=== PATIENT | male | born 1935 | race Caucasian/White ===

== ENCOUNTER 2024-10-08 15:30 | Inpatient (IN) | payer MEDICARE, OTHER ==
[~2024-10-08] VITALS: Ht 193 cm; Wt 85.3 kg
[2024-10-08] MEDS: PIPERACILLIN/TAZO 3.375G/100ML 100 ML IV SCH
[2024-10-08] MEDS: SODIUM CHLORIDE 0.9% 1,000 ML IV ONE (16:19)
[2024-10-08 16:30] LABS: HEMATOCRIT 32.7 % (42.0-52.0); HEMOGLOBIN 10.8 g/dL (14.0-18.0); MEAN CORPUSCULAR HEMOGLOBIN 32.7 pg (28.0-32.0); PLATELET 183 x1000/uL (130-400); RED CELL DISTRIBUTION WIDTH 12.6 % (11.6-14.6); WHITE BLOOD COUNT 24.8 x1000/uL (4.5-11.0)
[2024-10-08 16:40] LABS: CARBON DIOXIDE 21 mEq/L (21-32); CHLORIDE 110 mEq/L (98-107); POTASSIUM 4.2 mEq/L (3.5-5.1); SODIUM 139 mEq/L (136-145)
[2024-10-08 16:41] LABS: CALCIUM 8.8 mg/dL (8.7-10.4)
[2024-10-08 16:45] LABS: CREATININE 1.5 mg/dL (0.6-1.3); GLUCOSE 123 mg/dL (70-105)
[2024-10-08 16:46] LABS: UREA NITROGEN BLOOD 33 mg/dL (9-23)
[2024-10-08 16:59] LABS: TROPONIN I HIGH SENSITIVITY 17 ng/L (3.0-53)
[2024-10-08] MEDS ORDERED: VANCOMYCIN 1GM/200ML PMX (BAXTER) IV SCH (17:00)
[2024-10-08] MEDS: SODIUM CHLORIDE 0.9% 1,000 ML IV SCH ×2 (18:00)
[2024-10-08] MEDS: SODIUM CHLORIDE 0.9% (SEPSIS BOLUS) IV ONE (18:37)
[2024-10-08] MEDS: VANCOMYCIN 1.5GM PMX (XELLIA) 300 ML IV SCH (19:07)
[2024-10-08 19:33] LABS: CLARITY URINE CLEAR (CLEAR); COLOR URINE DARK YELLOW (YELLOW); GLUCOSE URINE NEGATIVE (NEGATIVE); KETONES URINE NEGATIVE (NEGATIVE); LEUKOCYTE ESTERASE URINE 2+ (NEGATIVE); NITRITE URINE POSITIVE (NEGATIVE); OCCULT BLOOD URINE NEGATIVE (NEGATIVE); PH URINE 5.5 (4.5-8.0); PROTEIN URINE 1+ (NEGATIVE); SPECIFIC GRAVITY URINE 1.017 (1.005-1.030)
[2024-10-08 19:48] LABS: BACTERIA URINE 4+; RBC URINE 0-2 /hpf (0-2); SQUAMOUS EPITHELIAL CELL URINE FEW /lpf (RARE/1+); WBC URINE 25-50 /hpf (0-2)
[2024-10-08] MEDS ORDERED: PIPERACILLIN/TAZO 3.375G/100ML 100 ML IV SCH (22:00)
[2024-10-08] MEDS ORDERED: ACETAMINOPHEN 325MG TABLET PO PRN ×2 (23:00)
[2024-10-08] MEDS ORDERED: IPRATROPIUM/ALBUTEROL 0.5-3(2.5)MG/3ML NEB HHN PRN (23:00)
[2024-10-08] MEDS ORDERED: ONDANSETRON HCL 4MG/2ML INJ IV PRN (23:00)
[2024-10-08] MEDS ORDERED: CLONIDINE 0.1MG TABLET PO PRN (23:00)
[2024-10-08] MEDS ORDERED: DOCUSATE SODIUM 100MG CAPSULE PO PRN (23:00)
[2024-10-08 23:55] VITALS: BP 111/59; PULSE 75; RESP 16; TEMP 36.83628; TEMP 36.8628; O2SAT 100
[2024-10-09 04:35] VITALS: BP 97/28; PULSE 62; RESP 16; TEMP 36.33624; O2SAT 100
[2024-10-09] MEDS ORDERED: ATOR40TA70 PO (06:46)
[2024-10-09] MEDS ORDERED: APIX5TAB PO (06:46)
[2024-10-09] MEDS ORDERED: LOSA25TA26 PO (06:47)
[2024-10-09] MEDS ORDERED: FINA5TAB11 PO (06:47)
[2024-10-09 07:26] LABS: HEMATOCRIT. 29.9 % (42.0-52.0); HEMOGLOBIN. 9.8 g/dL (14.0-18.0); MEAN CORPUSCULAR HEMOGLOBIN 32.6 pg (28.0-32.0); MEAN CORPUSCULAR HGB CONC 32.7 g/dL (31.0-37.0); MEAN CORPUSCULAR VOLUME 99.7 fL (80.0-94.0); MEAN PLATELET VOLUME 8.2 fl (7.4-10.4); PLATELET 161 x1000/uL (130-400); RED CELL DISTRIBUTION WIDTH 12.7 % (11.6-14.6); WHITE BLOOD COUNT 18.6 x1000/uL (4.5-11.0)
[2024-10-09 07:29] LABS: CHLORIDE 116 mEq/L (98-107); POTASSIUM 3.9 mEq/L (3.5-5.1); SODIUM 142 mEq/L (136-145)
[2024-10-09 07:30] LABS: CALCIUM 8.1 mg/dL (8.7-10.4); CARBON DIOXIDE 19 mEq/L (21-32)
[2024-10-09 07:35] LABS: CREATININE 1.3 mg/dL (0.6-1.3); GLUCOSE 131 mg/dL (70-105); UREA NITROGEN BLOOD 31 mg/dL (9-23)
[2024-10-09 07:37] LABS: ALANINE AMINOTRANSFERASE 14 IU/L (10-49); ASPARTATE AMINOTRANSFERASE 16 IU/L (<34); PROTEIN TOTAL 5.2 g/dL (6.0-8.3)
[2024-10-09 07:38] LABS: BILIRUBIN TOTAL 1.1 mg/dL (0.1-1.0)
[2024-10-09 07:52] LABS: DIFFERENTIAL COMMENT 1
[2024-10-09 08:00] VITALS: BP 116/53; PULSE 65; RESP 13; TEMP 37.00296; O2SAT 98
[2024-10-09] MEDS: PANTOPRAZOLE SODIUM 40 MG/VIAL IV SCH (08:40)
[2024-10-09 12:00] VITALS: BP 103/36; PULSE 61; RESP 20; TEMP 36.50292; O2SAT 97
[2024-10-09 12:42] LABS: INR 1.1; PROTHROMBIN TIME 12.6 sec (9.6-11.0)
[2024-10-09] MEDS: SODIUM CHLORIDE 0.45% 1,000 ML IV SCH (12:49)
[2024-10-09 12:54] LABS: FERRITIN 181 ng/mL (22-322); FOLIC ACID (FOLATE) SERUM 3.73 ng/mL (>5.38); TRIOIODOTHYRONINE TOTAL 0.43 ng/ml (0.60-1.81); VITAMIN B12 SERUM 866 pg/mL (211-911)
[2024-10-09 12:59] LABS: CREATINE KINASE MB FRACTION 2.8 ng/mL (0.5-3.6)
[2024-10-09 13:00] LABS: TROPONIN I HIGH SENSITIVITY 16 ng/L (3.0-53)
[2024-10-09 13:01] LABS: IRON 13 ug/dL (65-175); TRIGLYCERIDE 62 mg/dL (0-150)
[2024-10-09 13:02] LABS: LDL CHOLESTEROL 34 mg/dL (5-100)
[2024-10-09 13:03] LABS: ALANINE AMINOTRANSFERASE 15 IU/L (10-49); ALBUMIN 3.2 g/dL (3.2-4.8); ASPARTATE AMINOTRANSFERASE 19 IU/L (<34); BILIRUBIN DIRECT 0.4 mg/dL (<=3.0); CHOLESTEROL 85 mg/dL (<200); CREATINE KINASE 255 IU/L (46-171); HDL CHOLESTEROL 30 mg/dL (>55); PHOSPHORUS 2.1 mg/dL (2.5-4.9)
[2024-10-09 13:04] LABS: PROTEIN TOTAL 5.7 g/dL (6.0-8.3); T4 FREE 1.15 ng/dL (0.89-1.76); THYROID STIMULATING HORMONE 0.44 uIU/mL (0.55-4.78); TOTAL IRON BINDING CAPACITY 515 ug/dl (250-425)
[2024-10-09] MEDS: VANCOMYCIN 1GM/200ML PMX (BAXTER) IV SCH (13:47)
[2024-10-09 14:32] LABS: *AMPHETAMINES SCREEN URINE NEGATIVE (NEGATIVE); *BARBITURATES SCREEN URINE NEGATIVE (NEGATIVE); *BENZODIAZEPINES SCREEN URINE NEGATIVE (NEGATIVE); *COCAINE SCREEN URINE NEGATIVE (NEGATIVE); METHADONE URINE SCREEN NEGATIVE (NEGATIVE)
[2024-10-09 14:33] LABS: CANNABINOID URINE SCREEN NEGATIVE (NEGATIVE); ECSTASY MDMA SCREEN URINE NEGATIVE (NEGATIVE); OPIATES URINE SCREEN NEGATIVE (NEGATIVE); PHENCYCLIDINE URINE SCREEN NEGATIVE (NEGATIVE)
[2024-10-09 16:00] VITALS: BP 118/81; PULSE 62; RESP 18; TEMP 36.6696; O2SAT 100
[2024-10-09] MEDS: MIDODRINE HCL 5MG TABLET PO SCH (16:34)
[2024-10-09 16:43] LABS: PLATELET ESTIMATE NORMAL
[2024-10-09 20:00] VITALS: BP 124/61; PULSE 63; RESP 17; TEMP 36.50292; O2SAT 98
[2024-10-10] VITALS: BP 141/65; PULSE 57; RESP 18; TEMP 37.16964; O2SAT 98
[2024-10-10 04:50] VITALS: BP 121/45; PULSE 50; RESP 18; TEMP 36.6696; O2SAT 96
[2024-10-10] MEDS: MIDODRINE HCL 5MG TABLET PO SCH (06:19)
[2024-10-10 07:02] LABS: CHLORIDE 113 mEq/L (98-107); POTASSIUM 3.9 mEq/L (3.5-5.1); SODIUM 140 mEq/L (136-145)
[2024-10-10 07:03] LABS: CALCIUM 8.6 mg/dL (8.7-10.4); CARBON DIOXIDE 20 mEq/L (21-32)
[2024-10-10 07:06] LABS: TROPONIN I HIGH SENSITIVITY 13 ng/L (3.0-53)
[2024-10-10 07:08] LABS: CREATININE 1.1 mg/dL (0.6-1.3); GLUCOSE 108 mg/dL (70-105); UREA NITROGEN BLOOD 30 mg/dL (9-23)
[2024-10-10 07:11] LABS: PHOSPHORUS 1.8 mg/dL (2.5-4.9)
[2024-10-10 07:17] LABS: EOSINOPHILS % 0.1 % (0.0-5.0); HEMATOCRIT. 30.6 % (42.0-52.0); HEMOGLOBIN. 10.2 g/dL (14.0-18.0); LYMPHOCYTES % 10.2 % (20.0-50.0); MEAN CORPUSCULAR HEMOGLOBIN 32.8 pg (28.0-32.0); MEAN CORPUSCULAR HGB CONC 33.2 g/dL (31.0-37.0); MEAN CORPUSCULAR VOLUME 98.7 fL (80.0-94.0); MEAN PLATELET VOLUME 8.6 fl (7.4-10.4); MONOCYTES % 6.7 % (2.0-8.0); PLATELET 164 x1000/uL (130-400); RED CELL DISTRIBUTION WIDTH 12.9 % (11.6-14.6)
[2024-10-10 08:00] VITALS: BP 109/54; PULSE 58; RESP 20; TEMP 36.44736
[2024-10-10 12:00] VITALS: BP 113/57; PULSE 54; TEMP 36.28068; O2SAT 98
[2024-10-10] MEDS ORDERED: MAGNESIUM 2 G PREMIX 50 ML IV ONE (12:30)
[2024-10-10] MEDS: MAGNESIUM OXIDE 400MG TABLET PO SCH (13:21)
[2024-10-10] MEDS: MAGNESIUM 2 G PREMIX 50 ML IV NR (13:21)
[2024-10-10] MEDS: VANCOMYCIN 1.25GM PMX (XELLIA) 250 ML IV SCH (15:34)
[2024-10-10 16:00] VITALS: BP 135/65; PULSE 51; TEMP 36.3918; O2SAT 96
[2024-10-10] MEDS: POTASSIUM PHOSPHATE 30 MMOL in SODIUM CHLORIDE 0.9% 490 ML IV NR (17:32)
[2024-10-10 20:00] VITALS: BP 117/51; PULSE 56; RESP 16; TEMP 37.28076; O2SAT 97
[2024-10-10] MEDS: LACTOBACILLUS GG CAPSULE PO SCH (21:30)
[2024-10-10] MEDS: SULFAMETHOXAZOLE/TRIMETHOPRIM 800/160MG TABLET PO SCH (21:53)
[2024-10-11 08:00] VITALS: BP 142/76; PULSE 58; RESP 16; TEMP 36.78072; O2SAT 100
[2024-10-11 08:19] LABS: BASOPHILS % 0.2 % (0.0-2.0); DIFFERENTIAL COMMENT 0; EOSINOPHILS % 0.5 % (0.0-5.0); HEMATOCRIT. 35.4 % (42.0-52.0); HEMOGLOBIN. 11.5 g/dL (14.0-18.0); LYMPHOCYTES % 11.4 % (20.0-50.0); MEAN CORPUSCULAR HEMOGLOBIN 32.7 pg (28.0-32.0); MEAN CORPUSCULAR HGB CONC 32.4 g/dL (31.0-37.0); MEAN CORPUSCULAR VOLUME 100.8 fL (80.0-94.0); MEAN PLATELET VOLUME 8.4 fl (7.4-10.4); MONOCYTES % 8.3 % (2.0-8.0); NEUTROPHILS % 79.6 % (40.0-76.0); PLATELET 195 x1000/uL (130-400); RED BLOOD CELL COUNT 3.51 mill/uL (4.7-6.1); RED CELL DISTRIBUTION WIDTH 12.7 % (11.6-14.6); WHITE BLOOD COUNT 14.7 x1000/uL (4.5-11.0)
[2024-10-11 08:23] LABS: POTASSIUM 4.1 mEq/L (3.5-5.1)
[2024-10-11 08:24] LABS: CALCIUM 8.7 mg/dL (8.7-10.4)
[2024-10-11 08:29] LABS: CREATININE 1.3 mg/dL (0.6-1.3)
[2024-10-11] MEDS: AMLODIPINE 2.5MG TABLET PO SCH ×2 (09:11→20:08)
[2024-10-11] MEDS: FOLIC ACID 1MG TABLET PO SCH (09:12)
[2024-10-11 12:00] VITALS: BP 129/64; PULSE 50; RESP 21; TEMP 37.05852; O2SAT 99
[2024-10-11] MEDS: APIXABAN 5 MG TABLET PO SCH (13:34)
[2024-10-11 16:38] VITALS: BP 100/60; PULSE 55; RESP 20; TEMP 36.114; O2SAT 97
[2024-10-11 18:00] VITALS: BP 155/80; PULSE 55; RESP 16; TEMP 36.5292
[2024-10-11 20:00] VITALS: BP 129/64; PULSE 81; RESP 20; TEMP 36.72516; O2SAT 100
[2024-10-12 04:00] VITALS: BP 130/45; PULSE 60; RESP 20; TEMP 36.3918; O2SAT 99
[2024-10-12 06:41] LABS: POTASSIUM 4.2 mEq/L (3.5-5.1)
[2024-10-12 06:42] LABS: BASOPHILS % 0.2 % (0.0-2.0); EOSINOPHILS % 0.2 % (0.0-5.0); HEMATOCRIT. 33.5 % (42.0-52.0); HEMOGLOBIN. 11.2 g/dL (14.0-18.0); MEAN CORPUSCULAR HEMOGLOBIN 33.4 pg (28.0-32.0); MEAN CORPUSCULAR HGB CONC 33.5 g/dL (31.0-37.0); MEAN CORPUSCULAR VOLUME 99.5 fL (80.0-94.0); MEAN PLATELET VOLUME 8.3 fl (7.4-10.4); MONOCYTES % 8.7 % (2.0-8.0); NEUTROPHILS % 80.9 % (40.0-76.0); PLATELET 236 x1000/uL (130-400); RED BLOOD CELL COUNT 3.36 mill/uL (4.7-6.1); RED CELL DISTRIBUTION WIDTH 12.5 % (11.6-14.6); WHITE BLOOD COUNT 17.5 x1000/uL (4.5-11.0)
[2024-10-12 06:43] LABS: CALCIUM 8.8 mg/dL (8.7-10.4)
[2024-10-12 06:47] LABS: CREATININE 1.2 mg/dL (0.6-1.3)
[2024-10-12 08:00] VITALS: BP 103/61; PULSE 62; RESP 20; TEMP 36.89184; O2SAT 96
[2024-10-12 12:00] VITALS: BP 130/59; PULSE 60; RESP 20; TEMP 36.50292; O2SAT 96
[2024-10-12] MEDS ORDERED: SULF1TAB48 MT (15:20)
[2024-10-12 16:00] VITALS: BP 127/60; PULSE 63; RESP 20; TEMP 36.61404; O2SAT 97
[2024-10-12 16:25] VITALS: BP 130/59; PULSE 60; TEMP 97.7; O2SAT 96
== END 2024-10-12 17:22 | disposition home or self-care (01) | DRG 872 ==
LOC: ER 15:30 → 5WST 21:23 → EDBEDREQTM 21:36 → EDBEDREQ 21:36 → 5WST 10-11 10:48 → 6EST 10-11 16:44
PROVIDERS: ADMIT Family Medicine Adult Medicine; ATTEND Family Medicine Adult Medicine
DX: A41.9 Sepsis, unspecified organism (principal); N39.0 Urinary tract infection, site not specified; N17.9 Acute kidney failure, unspecified; D64.9 Anemia, unspecified; E89.0 Postprocedural hypothyroidism; I10 Essential (primary) hypertension; R00.1 Bradycardia, unspecified; Z20.822 Contact with and (suspected) exposure to COVID-19; I48.0 Paroxysmal atrial fibrillation; E83.42 Hypomagnesemia; E78.00 Pure hypercholesterolemia, unspecified; E07.81 Sick-euthyroid syndrome; I95.1 Orthostatic hypotension; N40.0 Benign prostatic hyperplasia without lower urinary tract symptoms; B96.29 Other Escherichia coli [E. coli] as the cause of diseases classified elsewhere; Z87.891 Personal history of nicotine dependence; Z79.899 Other long term (current) drug therapy; Z79.01 Long term (current) use of anticoagulants
CPT/HCPCS: 36415; 71045; 80048; 80053; 80061; 80076; 80202; 80305; 81003; 82550; 82553; 82607; 82728; 82746; 83036; 83540; 83550; 83605; 83735; 83880; 84100; 84145; 84439; 84443; 84480; 84484; 85025; 85027; 87077; 87186; 87426; 87804; 93005; 93306; 93880; 97161; 99285; A4606; A4663; J2470; J2543; J3370; J3475; J3490; J7030; J7040